=== PATIENT | female | born 1985 | race Caucasian/White ===

== ENCOUNTER 2018-09-05 10:32 | Day surgery (SDC) | payer OTHER ==
[~2018-09-05] VITALS: Ht 170.2 cm; Wt 64.9 kg
[2018-09-05 10:50] LABS: HEMATOCRIT 39.8 % (36.0-48.0); HEMOGLOBIN 13.8 g/dL (12-16); MCH 31.6 pg (26.0-34.0); MCHC 34.7 g/dL (31.0-37.0); MCV 91.1 fL (80.0-100.0); MEAN PLATELET VOLUME 9.2 fL (7.4-10.4); RBC 4.37 10x6/uL (4.00-5.40); RDW 12.7 % (11.5-14.5); WBC 8.3 10x3/uL (4.8-10.8)
[2018-09-05 12:16] VITALS: BP 99/63; Ht 170.2 cm; Wt 64.9 kg
[2018-09-05 12:24] LABS: HCG URINE NEGATIVE (NEGATIVE)
--- NOTE | 2018-09-05 14:36 | NUR ---
OPA OUT AT THIS TIME
--- NOTE | 2018-09-05 14:50 | NUR ---
REC'D FROM RR. FRIEND AT BEDSIDE. FL TRAY BROUGHT TO PT.
--- NOTE | 2018-09-05 15:20 | NUR ---
TOLERATED FL TRAY. ASKING WHEN SHE CAN GO HOME. EXPLAINED DC CRITERIA. VERBALIZED UNDERSTANDING.
--- NOTE | 2018-09-05 15:40 | NUR ---
IV DC'D WITH CATHETER INTACT.
--- NOTE | 2018-09-05 16:00 | NUR ---
WRITTEN AND VERBAL DC INST. GIVEN TO PT. ALONG WITH RX. VERBALIZED UNDERSTANDING.
--- NOTE | 2018-09-05 16:05 | NUR ---
DC'D HOME WITH FRIEND VIA PRIVATE VEHICLE. STABLE AT TIME OF DC.
--- NOTE | 2018-09-06 14:43 | OP ---
PATIENT NAME: MARISABEL DUBON MEDICAL RECORD: [id number] :81 [facility] AD[facility] DATE: SURGEON: YORDY HOLLIS MD DATE OF OPERATION: 09/05/2018 PREOPERATIVE DIAGNOSES: Hoarseness and left vocal cord lesion. POSTOPERATIVE DIAGNOSES: Hoarseness and left vocal cord lesion. PROCEDURES: Microsuspension laryngoscopy and excision of anterior left vocal cord lesion. SURGEON: Yordy Hollis MD ANESTHESIA: General orotracheal. BLOOD LOSS: Less than 1 cc. SPECIMENS: Left anterior vocal cord lesion. COMPLICATIONS: None. DISPOSITION: Recovery, stable. DESCRIPTION OF PROCEDURE: She was brought to the operating room, placed in the supine position, and sedated and intubated by anesthesia. Eyes were taped. Table was turned 90 degrees. She was positioned for laryngoscopy. A plastic upper tooth guard was placed. A Kleinsasser J laryngoscope was inserted and used to examine the hypopharynx, supraglottic larynx, postcricoid area, AE folds, and then looked at the cords posteriorly. The cords were normal behind the tube and then the tube was pushed. Up under the epiglottis, the anterior larynx was exposed. Obvious large round lesion, purple in color, almost perfectly round, about 6 mm, covering the anterior third of both cords and the anterior commissure. The laryngoscope was positioned and suspended. Microscope with 400-mm lens was then brought in. Then, with a small upbiting cup forceps, the lesion could be examined. It could be pushed up and down through the cords and was obviously attached to the left cord within about a centimeter of the anterior commissure and about 4 mm of the cord with rather long attachment. It was pulled medially across the right cord and then, with upbiting scissors, I was able to trim it off, removing just enough mucosa to leave the round lesion intact and to make a smooth excision from the cord, taking off the redundant mucosa stretched out from the lesion. It did not appear to be vascular. There was not any bleeding that appeared to be consistent with a cyst and the purplish color may be from hemorrhage inside of it, but it was very round and very smooth. It was sent for path. Once that was removed, Afrin pledget was placed between the cords and I examined the cord again. It was very carefully examined. The anterior commissure was intact and mucosa laid down nicely. There were some changes to the right cord from the contact from the lesion as well, but no other mucosal changes. The laryngoscope was let down from suspension and removed. The plastic tooth guard was removed. She was awakened, extubated, and transported to recovery in good condition. No complications. 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
--- NOTE | 2018-09-06 14:43 | HP ---
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 She has been found to have a left vocal cord lesion. She is being admitted for microsuspension laryngoscopy and excision of that lesion. PAST MEDICAL HISTORY: Otherwise negative. PAST SURGICAL HISTORY: None. CURRENT MEDICATIONS: None. ALLERGIES: No known drug allergies. PHYSICAL EXAMINATION: GENERAL: She is healthy-appearing. FACE: Normal, symmetric, no lesions. EYES: Sclerae and conjunctivae are normal. EARS: Canals and TMs are normal. NOSE: No masses, polyps or drainage. ORAL CAVITY AND OROPHARYNX: Tongue protrudes in the midline. Pharynx is normal. Laryngoscopy reveals a 6-mm almost pedunculated mass on the left anterior cord. CHEST: Clear. CARDIOVASCULAR: Regular rate and rhythm, no murmur. EXTREMITIES: Normal. IMPRESSION: Left cord lesion and hoarseness. PLAN: Microsuspension laryngoscopy and excision of left vocal cord lesion. TRANSINT:[id number] Voice Confirmation ID: [id number] DOCUMENT ID: [id number] SAL HOLLIS MD at 1443 CC: [id number] DICTATION DATE: 09/01/18 153 REGIONAL PROPERTY MANAGER: 09/01/[address] [facility] 09/05/18 [place] [id number]
== END 2018-09-05 16:05 | disposition home or self-care (01) ==
LOC: D.OPS 10:32 → D.PAN 12:45 → D.OPS 12:45
PROVIDERS: Anesthesiology; ATTEND Otolaryngology
DX: J38.3 Other diseases of vocal cords (principal); D49.0 Neoplasm of unspecified behavior of digestive system

== ENCOUNTER 2019-10-23 11:39 | Inpatient (IN) | payer OTHER ==
[~2019-10-23] VITALS: Ht 170.2 cm; Wt 90.3 kg
[2019-11-22 21:53] LABS: HEMATOCRIT 34.2 % (36.0-48.0); HEMOGLOBIN 11.2 g/dL (12-16); MCH 29.3 pg (26.0-34.0); MCHC 32.7 g/dL (31.0-37.0); MCV 89.5 fL (80.0-100.0); MEAN PLATELET VOLUME 10.6 fL (7.4-10.4); RBC 3.82 10x6/uL (4.00-5.40); WBC 10.8 10x3/uL (4.8-10.8)
[2019-11-22 21:59] LABS: UDS - AMPHET NEGATIVE QUAL (NEGATIVE); UDS - BARB NEGATIVE QUAL (NEGATIVE); UDS - BENZO NEGATIVE QUAL (NEGATIVE); UDS - COCAINE NEGATIVE QUAL (NEGATIVE); UDS - OPIATE NEGATIVE QUAL (NEGATIVE); UDS - PCP NEGATIVE QUAL (NEGATIVE); UDS - THC NEGATIVE QUAL (NEGATIVE)
--- NOTE | 2019-11-22 22:00 | NUR ---
at bedside, pt complaining of cramping while , k pad givenfor comfort
[2019-11-23 00:22] VITALS: BP 129/67; Ht 170.2 cm; Wt 90.3 kg
--- NOTE | 2019-11-23 16:15 | NUR ---
PT ORIENTED TO NEW ROOM 1274, CALL LIGHT AND PULL CORD IN BATHROOM. LINENS AND SUPPLIES PROVIDED. PT STATES SHE WANTS TO WALK TO NURSERY TO SEE . PT WALKED TO NURSERY BY THIS RN AND ACCOMPANIED BY SIG OTHER. DENIES DIZZINESS, STANDS IN NURSERY TALKING WITH RN AND LOOKING AT INFANT.
--- NOTE | 2019-11-23 16:25 | NUR ---
PT AMBULATES FROM NURSERY TO PP ROOM 1274 ACCOMPANIED BY SIG OTHER. PT DENIES FEELING DIZZY, STEADY GAIT. WILL CONT TO MONITOR.
--- NOTE | 2019-11-23 17:26 | NUR ---
PT SIG OTHER TO DESK STATING PT IS REQUESTING MOTRIN FOR PAIN. THIS RN TO ROOM. PT STATES SHE IS FEELING RECTAL PAIN/PRESSURE RATED 6/10. PT ADMIN MOTRIN ORDERED, POC AND MED TIMES UPDATED ON WHITE BOARD. JUICE GIVEN. PT DENIES FURTHER NEEDS. SHOWER SUPPLIES IN BATHROOM, PT INSTRUCTED TO CALL TO NOTIFY NURSE IF SHE GETS UP TO SHOWER. INSTRUCTIONS ALSO GIVEN ON EMPTYING BLADDER REGULARLY TO DECREASE BLEEDING AND CRAMPING. UNDERSTANDING VERBALIZED. SRUx2, CL IN REACH. SIG OTHER AT BEDSIDE.
--- NOTE | 2019-11-23 19:50 | NUR ---
ASSESSMENT COMPLETED, SEE ASSESSMENT FLOW SHEET, FUNDUS FIRM, LOCHIA SMALL, W/O C/O DISCOMFORT, DENIES NEEDS FOR MORE RIVERA SUPPLIES, HOLDING , MAKING GOOD EYE CONTACT, SIG OTHER AT BS
[2019-11-23 19:55] VITALS: BP 124/58
--- NOTE | 2019-11-23 21:30 | NUR ---
C/O CRAMPING, HEATING PAD GIVEN FOR ABDOMENT, RATES PAIN AT 3.
--- NOTE | 2019-11-23 23:11 | NUR ---
FEELING RELIEF FROM CRAMPING BUT STATES WOULD LIKE IBUPROFEN WHEN AVAILABLE FOR GENERALIZED SORENESS.
--- NOTE | 2019-11-23 23:35 | NUR ---
at bedside, medicated w/ ibuprophen per request, sl d/c'd and site covered w/ bandaid. no needs voiced at this time
--- NOTE | 2019-11-24 01:28 | NUR ---
RN TO PT BEDSIDE FOR ROUNDING, PT DENIES ANY NEEDS AT THIS TIME. PT HOLDING IN HER ARMS BONDING.
--- NOTE | 2019-11-24 03:30 | NUR ---
resting quietly in room w/ sig other at bedside, in open crib
--- NOTE | 2019-11-24 05:15 | NUR ---
at bedside, pt c/o cramping, medicated per orders w/ ibuprofen. no other needs voiced, in arms, bonding well
[2019-11-24 06:15] LABS: BASOPHILS 0.1 % (0-2); EOSINOPHILS 1.9 % (0-7); HEMATOCRIT 29.8 % (36.0-48.0); HEMOGLOBIN 9.8 g/dL (12-16); IMMATURE GRANULOCYTES 0.4 % (0-5); LYMPHOCYTES 19.4 % (15-50); MCH 29.9 pg (26.0-34.0); MCHC 32.9 g/dL (31.0-37.0); MCV 90.9 fL (80.0-100.0); MEAN PLATELET VOLUME 10.7 fL (7.4-10.4); MONOCYTES 6.2 % (2-11); PLATELET COUNT 241 10x3/uL (130-400); RBC 3.28 10x6/uL (4.00-5.40); RDW 14.3 % (11.5-14.5)
[2019-11-24 07:15] LABS: RAPID PLASMA REAGIN Non Reactive (Non Reactive)
[2019-11-24 09:48] VITALS: BP 108/54
--- NOTE | 2019-11-24 09:48 | NUR ---
THIS RN TO ROOM FOR SHIFT ASSESSMENT. SHIFT ASSESSMENT COMPLETED, VSS, SEE FLOWSHEET FOR DOC. PT REPORTS PAIN 8/10 IN RECTUM, PRESSURE FROM HEMORRHOIDS. PT STATES SHE STILL HAS TUCKS PADS AND DERMAPLAST, REQUESTS MOTRIN. MOTRIN ADMIN ORDERED PRN, SEE EMAR. PT OFFERED ICE PACK BUT DENIES NEEDING AT THIS TIME. S/S TO REPORT REGARDING LOCHIA/CLOTS DISCUSSED WITH PT, PT DENIES HAVING HEAVY LOCHIA OR CLOTS AT THIS TIME. S/S TO REPORT REGARDING DVT ALSO DISCUSSED WITH PT, PT VERBALIZES UNDERSTANDING. NEG SADA'S SIGN TO LE BILAT. MILD GENERALIZED EDEMA NOTED TO LE BILAT. FRESH ICE WATER GIVEN. PT DENIES FURTHER NEEDS AT THIS TIME. SRUx2, CL IN REACH. SIG OTHER ON BEDSIDE COUCH. WILL CONT TO MONITOR.
--- NOTE | 2019-11-24 11:15 | NUR ---
THIS RN TO ROOM FOR PT CHECK. PT SITTING UP IN BED, HOLDING IN LAP. SMILING, DENIES PAIN OR ANY NEEDS. SIG OTHER ON BEDSIDE COUCH. SRUx2, CL IN REACH. WILL CONT TO MONITOR.
--- NOTE | 2019-11-24 14:18 | NUR ---
PT UP AMBULATING IN HALLS, TO ICE MACHINE GETTING OWN ICE WATER. PT DENIES NEEDS AT THIS TIME. STATES SHE WILL WANT MOTRIN WHEN NEXT AVAILABLE.
--- NOTE | 2019-11-24 17:20 | NUR ---
PT GIVEN DISCHARGE INSTRUCTIONS. PT VERBALIZES UNDERSTANDING AND DENIES QUESTIONS. PT SIGNS CHART COPIES. PT AND SIG OTHER GATHER BELONGINGS TO TRANSFER TO W.S. UNIT TO ROOM IN UNTIL DISCHARGES HOME.
--- NOTE | 2019-11-24 17:30 | NUR ---
PT TRANSFERRED TO ROOM 1219 TO ROOM IN UNTIL DISCHARGED TO HOME. PT ACCOMPANIED BY SIG OTHER WHO IS HELPING CARRY BELONGINGS. ORIENTED TO NEW ROOM AND ROOMING IN PROCESS. PHONE NUMBER FOR NURSERY GIVEN. TOWELS AND LINENS PROVIDED.
== END 2019-11-24 17:30 | disposition home or self-care (01) | DRG 807 ==
LOC: D.LD 11-22 20:16
PROVIDERS: ADMIT Student in an Organized Health Care Education/Training Program; ATTEND Student in an Organized Health Care Education/Training Program
PROC: 10E0XZZ Delivery of Products of Conception, External Approach (ICD-10-PCS; principal; 2019-11-23)
PROC: 0KQM0ZZ Repair Perineum Muscle, Open Approach (ICD-10-PCS; 2019-11-23)
DX: O99.824 Streptococcus B carrier state complicating childbirth (principal); Z37.0 Single live birth; Z3A.39 39 weeks gestation of pregnancy; O69.81X0 Labor and delivery complicated by cord around neck, without compression, not applicable or unspecified; O70.1 Second degree perineal laceration during delivery